=== PATIENT | male | born 1965 | race Caucasian/White ===

== ENCOUNTER → 2024-04-25 06:45 | Day surgery (SDC) | payer OTHER, SELFPAY | LOC: GI 06:45 | PROVIDERS: ATTENDING PHYSICIAN Internal Medicine | DX: Z12.11 Encounter for screening for malignant neoplasm of colon (principal); D12.5 Benign neoplasm of sigmoid colon; K63.5 Polyp of colon; K57.30 Diverticulosis of large intestine without perforation or abscess without bleeding | CPT/HCPCS: 45385; 45380; 88305 ==